=== PATIENT | female | born 1990 | race Caucasian/White ===

== ENCOUNTER 2019-12-12 21:59 | Inpatient (IN) ==
[2019-12-12] MEDS ORDERED: Metoclopramide 10 MG/2 ML VIAL IVP PRN (22:08)
[2019-12-12] MEDS ORDERED: Naloxone 0.4 MG/ML INJ IVP PRN (22:08)
[2019-12-12] MEDS ORDERED: Ondansetron 4 MG/2 ML VIAL IVP PRN (22:08)
[2019-12-12] MEDS ORDERED: Lidocaine 1% 20 ML MDV INFILT PRN (22:08)
[2019-12-12] MEDS ORDERED: Famotidine 20 MG/2 ML VIAL IVP PRN (22:08)
[2019-12-12 22:50] LABS: Basophils % 0.3 %; Eosinophils # 0.1 K/mcL (0.0-0.6); Eosinophils % 0.9 %; Hemoglobin 12.8 g/dL (11.5-15.4); Immature Granulocytes % 0.7 % (0-4); Lymphocytes # 1.8 K/mcL (0.6-4.6); Lymphocytes % 24.1 %; Mean Corpuscular HGB Conc 36.6 g/dL (31.6-35.5); Mean Corpuscular Hemoglobin 31.4 pg (28.0-33.3); Mean Platelet Volume 11.5 fL (9.4-12.4); Monocytes # 0.4 K/mcL (0.0-1.3); Platelet Count 188 K/mcL (140-400); Red Blood Count 4.07 M/mcL (3.82-4.97); Red Cell Distribution Width 12.9 % (11.5-14.5); White Blood Count 7.4 K/mcL (4.3-11.1)
[2019-12-12 22:57] LABS: Amphetamine Screen,Urine Negative ng/mL (Cutoff=1000); Barbiturate Screen,Urine Negative ng/mL (Cutoff=200); Benzodiazepines Screen,Urine Negative ng/mL (Cutoff=200); Cannabinoid Screen,Urine Negative ng/mL (Cutoff = 50); Cocaine Screen,Urine Negative ng/mL (Cutoff= 300); Opiate Screen,Urine Negative ng/mL (Cutoff=300); Phencyclidine Screen,Urine Negative ng/mL (Cutoff=25)
[2019-12-12] MEDS ORDERED: Penicillin G Potassium 5,000,000 UNIT in 0.9 % Sodium Chloride Mini Bag 100 ML IVPB ONE (22:58)
[2019-12-12] MEDS: Ringers Solution, Lactated 1,000 ML IVC SCH (23:11)
[2019-12-12 23:36] LABS: Alanine Aminotransferase 13 Units/L (7-52); Aspartate Amino Transferase 17 Units/L (13-39); BUN/Creatinine Ratio 14 (6-26); Blood Urea Nitrogen 9 mg/dL (6-20); Lactate Dehydrogenase 149 Units/L (140-271); Uric Acid 5.2 mg/dL (2.3-7.6); eGFR For African Americans > 60 (> 60); eGFR For Non-African Americans > 60 (> 60)
[2019-12-12] MEDS: miSOPROStoL 25 MCG TABLET PO PRN (23:46)
[2019-12-13] MEDS: *HR* FentaNYL (PF) 100 MCG/2 ML VIAL IVP PRN ×2 (02:33→03:56)
[2019-12-13] MEDS: Penicillin G Potassium 2,500,000 UNIT in 0.9 % Sodium Chloride 100 ML IVPB SCH ×4 (03:25→15:59)
[2019-12-13] MEDS: miSOPROStoL 25 MCG TABLET PO PRN (05:02)
[2019-12-13] MEDS ORDERED: Ropivacaine/PF 0.2% 20 ML VIAL EP ONE (06:56)
[2019-12-13] MEDS ORDERED: *HR* FentaNYL (PF) 100 MCG/2 ML VIAL EP ONE (06:56)
[2019-12-13] MEDS ORDERED: EPHEDrine 50 MG/ML VIAL IVP PRN (06:56)
[2019-12-13] MEDS ORDERED: *HR* FentaNYL (PF) 100 MCG/2 ML VIAL ONE (08:43)
[2019-12-13] MEDS ORDERED: Ropivacaine/PF 0.2% 20 ML VIAL ONE (08:44)
[2019-12-13] MEDS ORDERED: Oxytocin 20 units/ LR 1000 mL 20 UNIT/1,000 ML BAG IVC ONE (08:54)
[2019-12-13] MEDS ORDERED: Oxytocin 20 units/ LR 1000 mL 20 UNIT/1,000 ML BAG IVC SCH ×2 (09:00→21:37)
[2019-12-13] MEDS: Epidural Premix (fent/bupiv) 110 ML EP SCH ×2 (09:59→16:54)
[2019-12-13] MEDS: Ringers Solution, Lactated 1,000 ML IVC SCH (13:40)
[2019-12-13] MEDS ORDERED: 0.9 % Sodium Chloride 1,000 ML ONE (14:41)
[2019-12-13] MEDS ORDERED: Lanolin 7 G OINT...G. TP PRN (21:37)
[2019-12-13] MEDS ORDERED: Benzocaine/Menthol 56 GM AEROSOL SPRAY TP PRN (21:37)
[2019-12-13] MEDS ORDERED: Measles/Mumps/Rubella Vacc 0.5 ML VIAL SQ PRN (21:37)
[2019-12-13] MEDS: Ibuprofen 600 MG TABLET PO PRN (21:53)
[2019-12-13] MEDS: Acetaminophen 325 MG TABLET PO PRN (22:54)
[2019-12-14] MEDS: Ibuprofen 600 MG TABLET PO PRN ×3 (05:30→20:26)
[2019-12-14 05:56] LABS: Basophils % 0.3 %; Eosinophils # 0.1 K/mcL (0.0-0.6); Eosinophils % 0.4 %; Hematocrit 34.4 % (35.3-44.9); Hemoglobin 12.3 g/dL (11.5-15.4); Immature Granulocytes % 0.6 % (0-4); Lymphocytes # 1.7 K/mcL (0.6-4.6); Mean Corpuscular HGB Conc 35.8 g/dL (31.6-35.5); Mean Corpuscular Hemoglobin 31.4 pg (28.0-33.3); Mean Corpuscular Volume 87.8 fL (83.0-100.0); Mean Platelet Volume 11.6 fL (9.4-12.4); Monocytes # 0.9 K/mcL (0.0-1.3); Monocytes % 6.9 %; Neutrophils # 10.2 K/mcL (1.6-8.9); Platelet Count 164 K/mcL (140-400); Red Blood Count 3.92 M/mcL (3.82-4.97); Red Cell Distribution Width 13.1 % (11.5-14.5); Segmented Neutrophils % 78.8 %
[2019-12-14 05:57] LABS: White Blood Count 12.9 K/mcL (4.3-11.1)
[2019-12-14] MEDS: Acetaminophen 325 MG TABLET PO PRN ×2 (09:46→19:02)
[2019-12-14] MEDS: Prenatal Vit/FA 1 EACH TABLET PO SCH (09:46)
[2019-12-15] MEDS: Ibuprofen 600 MG TABLET PO PRN (06:51)
[2019-12-15] MEDS: Acetaminophen 325 MG TABLET PO PRN (08:05)
[2019-12-15] MEDS: Prenatal Vit/FA 1 EACH TABLET PO SCH (08:05)
[2019-12-15 08:21] VITALS: BP 145/91
== END 2019-12-15 11:10 | disposition home or self-care (01) | DRG 807 ==
LOC: 1NENULAB 21:59 → 1NENUOBS 12-13 21:04
PROVIDERS: ADMIT Obstetrics & Gynecology; ATTEND Obstetrics & Gynecology

== ENCOUNTER 2021-09-11 05:52 | Inpatient (IN) ==
[2021-09-11] MEDS ORDERED: *HR* Nalbuphine 10 MG/ML AMPUL IV PRN (06:00)
[2021-09-11] MEDS ORDERED: Ondansetron 4 MG/2 ML VIAL IVP PRN (06:00)
[2021-09-11] MEDS ORDERED: Naloxone 0.4 MG/ML INJ IVP PRN (06:00)
[2021-09-11] MEDS ORDERED: Azithromycin 500 MG in 0.9 % Sodium Chloride 250 ML IVPB PRN (06:00)
[2021-09-11] MEDS ORDERED: Lidocaine 1% 20 ML MDV INFILT PRN (06:00)
[2021-09-11] MEDS ORDERED: Famotidine 20 MG/2 ML VIAL IVP PRN (06:00)
[2021-09-11] MEDS ORDERED: Metoclopramide 10 MG/2 ML VIAL IVP PRN (06:00)
[2021-09-11] MEDS ORDERED: miSOPROStoL 25 MCG TABLET PO PRN (06:00)
[2021-09-11] MEDS ORDERED: *HR* FentaNYL (PF) 100 MCG/2 ML VIAL IVP PRN (06:00)
[2021-09-11] MEDS: Ringers Solution, Lactated 1,000 ML IVC SCH ×2 (06:39→11:17)
[2021-09-11 06:52] LABS: Basophils % 0.6 %; Eosinophils # 0.1 K/mcL (0.0-0.6); Eosinophils % 1.7 %; Hematocrit 36.9 % (35.3-44.9); Hemoglobin 12.6 g/dL (11.5-15.4); Immature Granulocytes % 0.4 % (0-4); Lymphocytes # 1.4 K/mcL (0.6-4.6); Lymphocytes % 25.9 %; Mean Corpuscular HGB Conc 34.1 g/dL (31.6-35.5); Mean Corpuscular Hemoglobin 30.1 pg (28.0-33.3); Mean Corpuscular Volume 88.3 fL (83.0-100.0); Mean Platelet Volume 11.3 fL (9.4-12.4); Monocytes # 0.3 K/mcL (0.0-1.3); Monocytes % 6.2 %; Neutrophils # 3.5 K/mcL (1.6-8.9); Platelet Count 179 K/mcL (140-400); Red Blood Count 4.18 M/mcL (3.82-4.97); Red Cell Distribution Width 13.8 % (11.5-14.5); Segmented Neutrophils % 65.2 %; White Blood Count 5.4 K/mcL (4.3-11.1)
[2021-09-11] MEDS ORDERED: EPHEDrine 50 MG/ML VIAL IVP PRN (07:02)
[2021-09-11 07:30] LABS: Influenza A PCR Negative (Negative); Influenza B PCR Negative (Negative); Resp. Syncytial Virus PCR Negative (Negative)
[2021-09-11 07:31] LABS: SARS-CoV-2 by PCR (In House) Negative (Negative)
[2021-09-11 10:11] LABS: Amphetamine Screen,Urine Negative ng/mL (Cutoff=1000); Barbiturate Screen,Urine Negative ng/mL (Cutoff=200); Benzodiazepines Screen,Urine Negative ng/mL (Cutoff=200); Cannabinoid Screen,Urine Negative ng/mL (Cutoff = 50); Cocaine Screen,Urine Negative ng/mL (Cutoff= 300); Opiate Screen,Urine Negative ng/mL (Cutoff=300); Phencyclidine Screen,Urine Negative ng/mL (Cutoff=25)
[2021-09-11] MEDS: Epidural Premix (fent/bupiv) 110 ML EP SCH ×2 (11:10→17:30)
[2021-09-11] MEDS ORDERED: Oxytocin 20 units/ LR 1000 mL 20 UNIT/1,000 ML BAG IVC SCH (12:15)
[2021-09-12] MEDS ORDERED: Ondansetron ODT 4 MG TAB.RAPDIS SL PRN (01:35)
[2021-09-12] MEDS ORDERED: Rho Immune Globulin 1,500 UNIT SYRINGE IM PRN (01:35)
[2021-09-12] MEDS ORDERED: Oxytocin 20 units/ LR 1000 mL 20 UNIT/1,000 ML BAG IVC SCH (01:35)
[2021-09-12] MEDS ORDERED: Oxytocin 20 units/ LR 1000 mL 20 UNIT/1,000 ML BAG IVC ONE (01:35)
[2021-09-12] MEDS ORDERED: Measles/Mumps/Rubella Vacc 0.5 ML VIAL SQ PRN (01:35)
[2021-09-12] MEDS ORDERED: Lanolin 7 G OINT...G. TP PRN (01:35)
[2021-09-12] MEDS: Ibuprofen 600 MG TABLET PO SCH ×4 (03:43→22:14)
[2021-09-12] MEDS: Benzocaine/Menthol 56 GM AEROSOL SPRAY TP PRN ×2 (03:43→10:03)
[2021-09-12] MEDS: Acetaminophen 325 MG TABLET PO SCH ×4 (04:07→22:14)
[2021-09-12 04:43] LABS: Basophils % 0.2 %; Eosinophils # 0.1 K/mcL (0.0-0.6); Eosinophils % 0.4 %; Hematocrit 35.5 % (35.3-44.9); Hemoglobin 12.2 g/dL (11.5-15.4); Immature Granulocytes % 0.4 % (0-4); Lymphocytes # 1.6 K/mcL (0.6-4.6); Lymphocytes % 13.4 %; Mean Corpuscular HGB Conc 34.4 g/dL (31.6-35.5); Mean Corpuscular Hemoglobin 31.1 pg (28.0-33.3); Mean Corpuscular Volume 90.6 fL (83.0-100.0); Mean Platelet Volume 11.2 fL (9.4-12.4); Monocytes # 0.8 K/mcL (0.0-1.3); Monocytes % 6.7 %; Neutrophils # 9.6 K/mcL (1.6-8.9); Platelet Count 186 K/mcL (140-400); Red Blood Count 3.92 M/mcL (3.82-4.97); Red Cell Distribution Width 13.8 % (11.5-14.5); Segmented Neutrophils % 78.9 %
[2021-09-12 04:45] LABS: White Blood Count 12.2 K/mcL (4.3-11.1)
[2021-09-12] MEDS ORDERED: Prenatal Vit/FA 1 EACH TABLET PO SCH (09:00)
[2021-09-13] MEDS: Ibuprofen 600 MG TABLET PO SCH ×2 (04:29→10:44)
[2021-09-13] MEDS: Acetaminophen 325 MG TABLET PO SCH ×2 (04:29→10:44)
[2021-09-13 08:08] VITALS: BP 125/88; PULSE 61; TEMP 98.5; O2SAT 98
== END 2021-09-13 11:18 | disposition home or self-care (01) | DRG 768 ==
LOC: 1NENULAB 05:52 → 1NENUOBS 09-12 01:33
PROVIDERS: ADMIT Obstetrics & Gynecology; ATTEND Obstetrics & Gynecology